=== PATIENT | female | born 1975 | race Caucasian/White ===

== ENCOUNTER 2019-08-16 20:04 | Emergency (ER) | payer BC, MEDICARE ==
[2019-08-16] MEDS ORDERED: Lorazepam 1 MG TAB ONE (20:45)
[2019-08-16] MEDS ORDERED: Ondansetron PF 4 MG/2 ML Vial ONE (20:47)
[2019-08-16] MEDS ORDERED: Morphine 4 MG/ML VIAL ONE (20:47)
[2019-08-16] MEDS ORDERED: Lorazepam 2 MG/ML VIAL ONE (21:12)
[2019-08-16 21:25] LABS: Hemoglobin 14.1 g/dL (12.0-16.0); Mean Corpuscular HGB CONC 32.8 g/dL (32.0-36.0); Mean Corpuscular Hemoglobin 31.8 pg (27.0-31.0); Mean Corpuscular Volume 97.1 fL (78.0-98.0); Mean Platelet Volume 6.7 fL (7.4-10.4); Platelet Count 342 thou/uL (130-400); RBC Distribution Width 12.2 % (11.5-14.5); Red Blood Cell (RBC) Count 4.44 mill/uL (4.20-5.40); White Blood Cell (WBC) Count 7.7 thou/uL (4.8-10.8)
[2019-08-16 21:33] LABS: Band 10 % (5-11); Lymphocytes 12 % (21-51); MDiff Complete? YES; Monocytes 7 % (0-10); Neutrophil 71 % (42-75); Platelet Morphology Comment Appears Adequate; RBC Morphology Normal; Small Platelets SLIGHT
[2019-08-16 21:38] LABS: ALT (SGPT) 31 U/L (8-55); AST (SGOT) 25 U/L (5-34); Albumin 4.1 g/dL (3.5-5.0); Alkaline Phosphatase 86 U/L (40-110); Anion Gap 18 mmol/L (10-20); BUN (Urea Nitrogen) 10 mg/dL (7.0-18.7); Bilirubin, Total 0.4 mg/dL (0.2-1.2); Calc. Creatinine Clearance 0 mL/min (70-130); Calcium 9.1 mg/dL (7.8-10.44); Carbon Dioxide 17 mmol/L (22-29); Chloride 107 mmol/L (98-107); Estimated GFR-MDRD 87; Glucose 105 mg/dL (70-105); Potassium 3.9 mmol/L (3.5-5.1); Protein, Total 7.1 g/dL (6.0-8.3); Sodium 138 mmol/L (136-145)
[2019-08-16] MEDS ORDERED: Ketamine 50 MG/ML (10ML VIAL) ONE (21:51)
[2019-08-16 21:58] LABS: Lipase Less than 4 U/L (8-78)
== END 2019-08-17 00:20 | disposition home or self-care (01) ==
LOC: MADERS 20:04
DX: S03.00XA Dislocation of jaw, unspecified side, initial encounter (principal); K52.9 Noninfective gastroenteritis and colitis, unspecified; Z79.899 Other long term (current) drug therapy; X58.XXXA Exposure to other specified factors, initial encounter
CPT/HCPCS: 21480; 80053; 83690; 85025; 96374; 96375; J2060; J2270; J2405

== ENCOUNTER 2020-08-24 11:09 | Emergency (ER) | payer MEDICARE ==
--- NOTE | 2020-08-24 12:09 | RAD ---
RADIOGRAPH LEFT HAND 3VIEWS: DATE: 08/24/2020 HISTORY: 45-year-old female with acute traumatic left hand pain from fall FINDINGS: There is no evidence of fracture or dislocation. There is no evidence of periostitis, permeative lesi on, osteolytic lesion, or osteoblastic lesion. The joint spaces are maintained without erosions or significant osteophytes. IMPRESSION: Normal
== END 2020-08-24 12:19 | disposition home or self-care (01) ==
LOC: MADERS 11:09
DX: S63.602A Unspecified sprain of left thumb, initial encounter (principal); G35 Multiple sclerosis; W01.0XXA Fall on same level from slipping, tripping and stumbling without subsequent striking against object, initial encounter

== ENCOUNTER 2025-03-28 12:21 | Emergency (ER) | payer MEDICARE ==
[2025-03-28 13:32] LABS: #Basophils 0.1 thou/uL (0.0-0.2); #Eosinophils 0.1 thou/uL (0.0-0.7); #Lymphocytes 1.0 thou/uL (1.20-3.40); #Monocytes 0.6 thou/uL (0.11-0.59); #Neutrophils 5.4 thou/uL (1.40-6.50); %Basophils 0.8 % (0.0-1.0); %Eosinophils 1.3 % (0.0-10.0); %Lymphocytes 13.5 % (21.0-51.0); %Monocytes 8.1 % (0.0-10.0); %Neutrophils 76.4 % (42.0-75.0); Hematocrit 42.2 % (36.0-47.0); Hemoglobin 13.8 g/dL (12.0-16.0); Mean Corpuscular Hemoglobin 31.6 pg (27.0-31.0); Mean Corpuscular Volume 96.5 fl (78.0-98.0); Platelet Count 390 10x3/uL (130-400); Red Blood Cell (RBC) Count 4.38 mill/uL (4.20-5.40); White Blood Cell (WBC) Count 7.1 10x3/uL (4.8-10.8)
[2025-03-28 13:44] LABS: ALT (SGPT) 18 U/L (Less than 34); AST (SGOT) 20 U/L (11-34); Albumin 4.4 g/dL (3.1-4.5); Alkaline Phosphatase 76 U/L (40-110); Anion Gap 19 mmol/L (10-20); BUN (Urea Nitrogen) 11 mg/dL (9.8-20.1); Bilirubin, Total 0.5 mg/dL (0.3-1.2); Calc. Creatinine Clearance 0 mL/min (70-130); Calcium 8.9 mg/dL (7.8-10.44); Carbon Dioxide 20 mmol/L (22-29); Chloride 104 mmol/L (98-107); Globulin 2.8 g/dL (2.4-3.5); Glucose 71 mg/dL (70-105); Lipase 7 U/L (8-78); Potassium 3.5 mmol/L (3.5-5.1); Sodium 139 mmol/L (136-145)
[2025-03-28 14:13] LABS: Glucose, Urine (Dipstick) Negative (Negative); Leukocyte Negative (Negative); Protein, Urine (Dipstick) Trace mg/dL (Neg-Trace); Specific Gravity, Urine Greater/Equal 1.030 (1.005-1.030)
[2025-03-28 14:31] LABS: Bacteria/HPF Rare-Few HPF (None Seen); CAUTI Indications for Culture Dysuria,urgency,freq; RBC/HPF None Seen HPF (0-3); Urine Culture Reflex No No; WBC/HPF 0-3 HPF (0-3)
== END 2025-03-28 15:38 | disposition home or self-care (01) ==
LOC: MADERS 12:21
DX: R11.2 Nausea with vomiting, unspecified (principal); F17.290 Nicotine dependence, other tobacco product, uncomplicated
CPT/HCPCS: 80053; 81001; 83690; 85025; J7030; 96360